=== PATIENT | male | born 1940 | race Caucasian/White ===

== ENCOUNTER 2016-11-28 12:37 | Outpatient (CLI) ==
[2016-11-28 13:34] VITALS: BMI 22.8
== END 2016-11-28 12:38 ==
LOC: AMBL 12:37
PROVIDERS: ATTEND Emergency Medicine
DX: R26.2 Difficulty in walking, not elsewhere classified (principal); R09.02 Hypoxemia

== ENCOUNTER 2016-11-28 12:49 | Inpatient (IN) ==
[2016-11-28] MEDS ORDERED: SODIUM CHLORIDE 1,000 ML IV STA (12:54)
--- NOTE | 2016-11-28 13:15 | ED.PDOC ---
General ED Provider: Dr. SHILO VANEGAS Stated Complaint: 76 yo w male rustcharlie ia patient too weak to get out of his recliner for five or six days found in chair by friend,unwilling to be treated until today, denies focal signs just global weakness especially unable to walk emaciated conversant soiled note right buttock lesions actively bleed after cleansing, hreg lungs raspy Time Seen by Physician: 13:00 Mode of Arrival: Ambulance Information Source: Patient Exam Limitations: Clinical condition, Other Nursing and Triage Documentation Reviewed and Agree: No Review of Systems - Review Of Systems Constitutional: Reports: Malaise, Weakness Eyes: Reports: No symptoms Ears, Nose, Mouth, Throat: Reports: No symptoms Respiratory: Reports: No symptoms Cardiac: Reports: No symptoms GI: Reports: No symptoms : Reports: No symptoms Musculoskeletal: Reports: Other Skin: Reports: Lesions Neurological: Reports: Weakness Endocrine: Reports: No symptoms Hematologic/Lymphatic: Reports: No symptoms All Other Systems: Other Past Medical History - Past Medical History Previously Healthy: Yes Endocrine: Reports: None Cardiovascular: Reports: None Respiratory: Reports: None Hematological: Reports: None Gastrointestinal: Reports: None Genitourinary: Reports: None Neuro/Psych: Reports: None Musculoskeletal: Reports: Back Pain ([id number]) Cancer: Reports: None - Surgical History General Surgical History: Reports: Appendectomy, Hernia Repair (ventral hernia repair) - Family History Family History: Reports: Unknown - Social History Hx Substance Use: No Physical Exam - Physical Exam Appearance: Ill-appearing, Thin, Cachectic Ill-appearing: Moderate Pain Distress: Mild Eyes: KIM, EOMI, Conjunctiva clear ENT: Ears normal, Nose normal, Oropharynx normal Neck: Supple Respiratory: Airway patent, Breath sounds equal, Breath sounds diminished, Respirations nonlabored, Rhonchi Cardiovascular: RRR, Pulses normal, No rub, No murmur GI/: Soft, No masses Musculoskeletal: ROM intact, No edema, No calf tenderness, Limited strength Skin: Warm, Dry Neurological: Sensation intact, Motor intact, Alert, Oriented Psychiatric: Affect appropriate Interpretation - Radiology Interpretation Radiology Interpretation By: Radiologist Radiology Results: Positive Exam Interpreted: CXR (mild bibasilar pneumonia) - EKG Interpretation Time of EKG #1: 13:55 Rate: Normal Rhythm: Sinus ST Segment: Other (prolonged qt; t flattening) Physician Notification - Case Discussed Physician Notified: [email or web address] need to [phone] colette Time of Notification: 14:20 (dry transfer worker fax record [phone]) Critical Care Note - Critical Care Note Total Time (mins): 20 Course - Course Hematology/Chemistry: 11/28/16 13:20 11/28/16 18:00 Orders, Labs, Meds: Lab Review 11/28/16 11/28/16 12:54 13:20 WBC 8.71 RBC 3.77 L Hgb 15.0 Hct 42.3 MCV 112.2 H MCH 39.8 H MCHC 35.5 H RDW Coeff of Heather 13.6 Plt Count 127 L Immature Gran % (Auto) 1.3 Neut % (Auto) 68.4 Lymph % (Auto) 23.5 [place] % (Auto) 5.9 Eos % (Auto) 0.6 Baso % (Auto) 0.3 Immature Gran # (Auto) 0.1 Neut # 6.0 Lymph # 2.1 [place] # 0.5 Eos # 0.1 Baso # 0.0 Macrocytosis 2+ D-Dimer 1.47 Puncture Site R brachial O2 Saturation 94.0 L ABG pH 7.536 H* ABG pCO2 37.9 ABG pO2 63.0 L ABG HCO3 32.2 H ABG Total CO2 33 H ABG Base Excess 10 H Jose Test + FiO2 % 21.0 Sodium 138 Potassium 2.7 L* Chloride 84 L Carbon Dioxide 34 H Anion Gap 22.7 BUN 13 Creatinine 0.69 Estimated GFR (MDRD) 111.00 BUN/Creatinine Ratio 18.84 Glucose 78 L Calcium 8.6 Magnesium 2.1 Total Bilirubin 2.36 H AST 76 H ALT 39 Alkaline Phosphatase 124 H Total Creatine Kinase 35 Troponin I < 0.0100 B-Natriuretic Peptide 68 Total Protein 7.2 Albumin 2.4 L Globulin 4.8 Albumin/Globulin Ratio 0.50 Procalcitonin 0.23 Orders Category Date Time Status ADMIT PATIENT INPATIENT .TO [facility] (MONITORED BED) ADMISSION 11/28/16 16: 19 Active ABG DRAW REQUEST Stat CARDIO 11/28/16 12:55 Completed EKG-(ED ONLY) Stat CARDIO 11/28/16 12:54 Completed EKG-(IP & OP ONLY) DAILY CARDIO 11/29/16 06:00 Ordered EKG-(IP & OP ONLY) DAILY CARDIO 11/30/16 06:00 Ordered EKG-(IP & OP ONLY) DAILY CARDIO 12/01/16 06:00 Ordered OXYGEN Routine CARDIO 11/28/16 16:22 Active ACTIVITY .Early Mobilization for VTE Prevention CARE 11/28/16 16:19 Completed CASE MANAGEMENT CONSULT ONCE CARE 11/28/16 16:20 Active GIVE HS SNACK 2100 CARE 11/28/16 16:22 Active INTAKE & OUTPUT Q8HR CARE 11/28/16 16:09 Inactive INTAKE & OUTPUT Q8HR CARE 11/28/16 16:19 Active TELEMETRY MONITORING TELE CARE 11/28/16 16:20 Active VITAL SIGNS Q4HR CARE 11/28/16 16:19 Completed CARDIAC DIET DIETARY 11/28/16 Dinner Ordered HS SNACK DIETARY 11/28/16 Dinner Ordered ED APPLY O2 .ONCE EMERGENCY 11/28/16 12:54 Active ED ENCODING MACHINE OPERATOR APPLIED .ONCE EMERGENCY 11/28/16 12:54 Active ED IV/MEDIPORT/POWERPORT .ONCE EMERGENCY 11/28/16 12:54 Active ABG Stat LAB 11/28/16 12:54 Completed B-TYPE NATRIURETIC PEPTIDE Stat LAB 11/28/16 13:20 Completed BLOOD CULTURE Stat LAB 11/28/16 13:20 Received CBC W/ AUTO DIFF DAILY@0600 LAB 11/29/16 06:00 Ordered CBC W/ AUTO DIFF DAILY@0600 LAB 11/30/16 06:00 Ordered CBC W/ AUTO DIFF DAILY@0600 LAB 12/01/16 06:00 Ordered CBC W/ AUTO DIFF DAILY@0600 LAB 12/02/16 06:00 Ordered CBC W/ AUTO DIFF DAILY@0600 LAB 12/03/16 06:00 Ordered CBC W/ AUTO DIFF DAILY@0600 LAB 12/04/16 06:00 Ordered CBC W/ AUTO DIFF DAILY@0600 LAB 12/05/16 06:00 Ordered CBC W/ AUTO DIFF DAILY@0600 LAB 12/06/16 06:00 Ordered CBC W/ AUTO DIFF DAILY@0600 LAB 12/07/16 06:00 Ordered CBC W/ AUTO DIFF DAILY@0600 LAB 12/08/16 06:00 Ordered CBC W/ AUTO DIFF DAILY@0600 LAB 12/09/16 06:00 Ordered CBC W/ AUTO DIFF DAILY@0600 LAB 12/10/16 06:00 Ordered CBC W/ AUTO DIFF DAILY@0600 LAB 12/11/16 06:00 Ordered CBC W/ AUTO DIFF DAILY@0600 LAB 12/12/16 06:00 Ordered CBC W/ AUTO DIFF DAILY@0600 LAB 12/13/16 06:00 Ordered CBC W/ AUTO DIFF DAILY@0600 LAB 12/14/16 06:00 Ordered CBC W/ AUTO DIFF DAILY@0600 LAB 12/15/16 06:00 Ordered CBC W/ AUTO DIFF DAILY@0600 LAB 12/16/16 06:00 Ordered CBC W/ AUTO DIFF DAILY@0600 LAB 12/17/16 06:00 Ordered CBC W/ AUTO DIFF DAILY@0600 LAB 12/18/16 06:00 Ordered CBC W/ AUTO DIFF Stat LAB 11/28/16 13:20 Completed COMPREHENSIVE METABOLIC PANEL DAILY@0600 LAB 11/29/16 06:00 Ordered COMPREHENSIVE METABOLIC PANEL DAILY@0600 LAB 11/30/16 06:00 Ordered COMPREHENSIVE METABOLIC PANEL DAILY@0600 LAB 12/01/16 06:00 Ordered COMPREHENSIVE METABOLIC PANEL DAILY@0600 LAB 12/02/16 06:00 Ordered COMPREHENSIVE METABOLIC PANEL DAILY@0600 LAB 12/03/16 06:00 Ordered COMPREHENSIVE METABOLIC PANEL DAILY@0600 LAB 12/04/16 06:00 Ordered COMPREHENSIVE METABOLIC PANEL DAILY@0600 LAB 12/05/16 06:00 Ordered COMPREHENSIVE METABOLIC PANEL DAILY@0600 LAB 12/06/16 06:00 Ordered COMPREHENSIVE METABOLIC PANEL DAILY@0600 LAB 12/07/16 06:00 Ordered COMPREHENSIVE METABOLIC PANEL DAILY@0600 LAB 12/08/16 06:00 Ordered COMPREHENSIVE METABOLIC PANEL DAILY@0600 LAB 12/09/16 06:00 Ordered COMPREHENSIVE METABOLIC PANEL DAILY@0600 LAB 12/10/16 06:00 Ordered COMPREHENSIVE METABOLIC PANEL DAILY@0600 LAB 12/11/16 06:00 Ordered COMPREHENSIVE METABOLIC PANEL DAILY@0600 LAB 12/12/16 06:00 Ordered COMPREHENSIVE METABOLIC PANEL DAILY@0600 LAB 12/13/16 06:00 Ordered COMPREHENSIVE METABOLIC PANEL DAILY@0600 LAB 12/14/16 06:00 Ordered COMPREHENSIVE METABOLIC PANEL DAILY@0600 LAB 12/15/16 06:00 Ordered COMPREHENSIVE METABOLIC PANEL DAILY@0600 LAB 12/16/16 06:00 Ordered COMPREHENSIVE METABOLIC PANEL DAILY@0600 LAB 12/17/16 06:00 Ordered COMPREHENSIVE METABOLIC PANEL DAILY@0600 LAB 12/18/16 06:00 Ordered COMPREHENSIVE METABOLIC PANEL Stat LAB 11/28/16 13:20 Completed CREATINE KINASE Q8H LAB 11/28/16 22:30 Ordered CREATINE KINASE Q8H LAB 11/29/16 06:30 Ordered CREATINE KINASE Stat LAB 11/28/16 13:20 Completed D-DIMER Stat LAB 11/28/16 13:20 Completed HEPATITIS PANEL, ACUTE Routine LAB 11/28/16 13:20 Received MAGNESIUM Stat LAB 11/28/16 13:20 Completed MAGNESIUM Timed LAB 11/28/16 18:00 Completed POTASSIUM Timed LAB 11/28/16 18:00 Completed PROCALCITONIN Stat LAB 11/28/16 13:20 Completed RBC MORPHOLOGY Stat LAB 11/28/16 13:20 Completed TROPONIN I Q8H LAB 11/28/16 22:30 Ordered TROPONIN I Q8H LAB 11/29/16 06:30 Ordered TROPONIN I Stat LAB 11/28/16 13:20 Completed 0.9 % Sodium Chloride [Saline Flush] MEDS 11/28/16 12:54 Active 1 syr IVF PRN PRN Acetaminophen [Tylenol] MEDS 11/28/16 16:23 Active 650 mg PO Q4H PRN Ceftriaxone Sodium [Rocephin] 1 gm MEDS 11/29/16 09:00 Active 0.9 % Sodium Chloride [Sodium Chloride] 100 ml IV DAILY Ceftriaxone Sodium [Rocephin] 1 gm MEDS 11/28/16 16:03 Discontinued 0.9 % Sodium Chloride [Sodium Chloride] 100 ml IV ONCE Potassium Chloride [K-Dur] MEDS 11/28/16 14:07 Discontinued 40 meq PO ONCE STA Potassium Chloride [Potassium Chl 10% Oral Erika] MEDS 11/28/16 14:47 Discontinued 40 meq PO ONCE STA Potassium Chloride in 0.9%NaCl [Sodium Chloride 0.9%- MEDS 11/28/16 14:07 Discontinued KCl 40Meq] 1,000 ml IV 250 mls/hr Sodium Chloride 0.9% [Sodium Chloride] 1,000 ml MEDS 11/28/16 12:54 Active IV 100 mls/hr Sodium Chloride 0.9% [Sodium Chloride] 500 ml MEDS 11/28/16 13:23 Discontinued IV BOLUS RESUSCITATION STATUS Routine OTHERS 11/28/16 16:06 Ordered CHEST, 1V AP ONLY Stat RADS 11/28/16 12:54 Completed Medications Generic Name Dose Route Start Last Admin Trade Name Chris PRN Reason Stop Dose Admin Acetaminophen 650 mg 11/28/16 16:23 Tylenol PO Q4H PRN Mild Pain Albuterol/Ipratropium 1 vial 11/28/16 18:00 11/28/16 18:16 Duoneb NEB 1 vial RTQ6H SHIVA Administration Calamine/Phenol 1 applic 11/28/16 17:33 11/28/16 17:51 Calmoseptine Ointment TP 1 applic PRN PRN Administration excoriation Sodium Chloride 1,000 mls @ 100 mls/hr 11/28/16 12:54 11/28/16 14:30 Sodium Chloride IV 11/28/16 22:53 100 mls/hr .Q10H STA Administration Ceftriaxone Sodium 1 gm/ 100 mls @ 75 mls/hr 11/29/16 09:00 Sodium Chloride IV DAILY SHIVA Vancomycin HCl 1 gm/ Sodium 250 mls @ 125 mls/hr 11/28/16 17:00 11/28/16 17: 59 Chloride IV 125 mls/hr Q12HR SHIVA Administration Nystatin 1 applic 11/28/16 21:00 11/28/16 17:51 Nystatin Cream TP 1 applic TID SHIVA Administration Nystatin 1 applic 11/28/16 21:00 11/28/16 17:51 Nystop Powder TP 1 applic TID SHIVA Administration Sodium Chloride 1 syr 11/28/16 12:54 Saline Flush IVF PRN PRN To flush IV Discontinued Medications Generic Name Dose Route Start Last Admin Trade Name Freyanely PRN Reason Stop Dose Admin Sodium Chloride 500 mls @ 1,000 mls/hr 11/28/16 13:23 11/28/16 14:04 Sodium Chloride IV 11/28/16 13:52 1,000 mls/hr BOLUS STA Administration Potassium Chloride/Sodium Chloride 1,000 mls @ 250 mls/hr 11/28/16 14:07 15:18 Sodium Chloride 0.9%-Kcl 40meq IV 11/28/16 18:06 250 mls/hr .Q4H STA Administration Ceftriaxone Sodium 1 gm/ 100 mls @ 100 mls/hr 11/28/16 16:03 11/28/16 16:57 Sodium Chloride IV 11/28/16 17:02 100 mls/hr ONCE STA Administration Potassium Chloride 40 meq 11/28/16 14:07 11/28/16 14:50 K-Dur PO 11/28/16 14:08 Not Given ONCE STA Potassium Chloride 40 meq 11/28/16 14:47 11/28/16 14:57 Potassium Chl 10% Oral Erika PO 11/28/16 14:48 40 meq ONCE STA Administration Vital Signs: Temp Pulse Resp BP Pulse Ox 11/28/16 12:49 97.1 F L 109 H 24 103/63 88 L Departure - Departure Time of Disposition: 14:26 Disposition: ADMITTED INPATIENT Discharge Problem: Muscle weakness, Hypokalemia Condition: Fair Pt referred to PMD for follow-up: No (hospitalist) Allergies/Adverse Reactions: Allergies No Known Allergies Allergy (Unverified 04/03/13 10:01) Home Medications: Ambulatory Orders Aspirin [Aspirin Chewable] 81 mg PO DAILY 04/03/13 Multivitamin [Multi Vitamin Daily] 1 tab PO DAILY 04/03/13
[2016-11-28 13:17] LABS: ABG BASE EXCESS 10 (-2.0-2.0); ABG HCO3 32.2 (22.0-26.0); ABG PCO2 37.9 mmHg (35-45); ABG PH 7.536 (7.35-7.45); ABG TCO2 33 (22.0-28.0)
[2016-11-28] MEDS ORDERED: SODIUM CHLORIDE 500 ML IV STA (13:23)
[2016-11-28 13:34] VITALS: BMI 22.8
--- NOTE | 2016-11-28 13:43 | DI ---
EXAM: CHEST FRONTAL VIEW HISTORY: Chest pain. COMPARISON: None FINDINGS: Heart size is within normal limits. Patchy discoid density in the right base. Lungs oth erwise clear. Normal vascularity. There may be mild aortic atherosclerosis. No pneumothorax or ac [place] bony deformity. IMPRESSION: Bibasilar density could represent mild pneumonia. If symptoms persist, consider follow up with full inspiration, standing two-view chest radiography using PA and lateral technique.
[2016-11-28 13:54] LABS: BASOPHILS % (AUTO) 0.3 % (0.0-3.0); EOSINOPHILS # (AUTO) 0.1 K/ul (0.0-0.7); EOSINOPHILS % (AUTO) 0.6 % (0.0-7.0); HEMATOCRIT 42.3 % (42.0-52.0); IMMATURE GRANULOCYTE % (AUTO) 1.3 % (0.0-5.0); LYMPHOCYTES # (AUTO) 2.1 K/uL (0.60-3.4); LYMPHOCYTES % (AUTO) 23.5 (10.0-50.0); MEAN CORPUSCULAR HEMOGLOBIN 39.8 pg (27.0-31.0); MEAN CORPUSCULAR HGB CONC 35.5 (31.8-35.4); MEAN CORPUSCULAR VOLUME 112.2 fl (80.0-94.0); MONOCYTES # (AUTO) 0.5 K/uL (0.4-2.0); MONOCYTES % (AUTO) 5.9 (0-10); NEUTROPHILS % (AUTO) 68.4; PLATELET COUNT 127 10^3/uL (140-440); RED BLOOD COUNT 3.77 10^6/ul (4.70-6.10); WHITE BLOOD COUNT 8.71 K/ul (4.2-10.2)
[2016-11-28 14:05] LABS: ALANINE AMINOTRANSFERASE 39 U/L (12-78); ALBUMIN 2.4 g/dL (3.4-5.0); ALKALINE PHOSPHATASE 124 U/L (56-119); ANION GAP 22.7; ASPARTATE AMINO TRANSFERASE 76 U/L (15-37); BILIRUBIN,TOTAL 2.36 mg/dL (0.00-1.20); BLOOD UREA NITROGEN 13 mg/dL (7-18); BUN/CREATININE RATIO 18.84; CALCIUM 8.6 mg/dL (8.2-10.2); CARBON DIOXIDE 34 mmol/L (23-31); CHLORIDE 84 mmol/L (98-107); CREATINE KINASE 35 U/L; CREATININE 0.69 mg/dL (0.60-1.10); GLUCOSE 78 mg/dL (82-115); SODIUM 138 mmol/L (136-145); TOTAL PROTEIN 7.2 g/dL (5.8-8.1)
[2016-11-28 14:07] LABS: POTASSIUM 2.7 mmol/L (3.5-5.1)
[2016-11-28] MEDS ORDERED: K-DUR PO STA (14:07)
[2016-11-28] MEDS ORDERED: SODIUM CHLORIDE 0.9%-KCL 40MEQ 1,000 ML IV STA (14:07)
[2016-11-28 14:09] LABS: ANISOCYTOSIS NOT PRESENT (NOT PRESENT)
[2016-11-28] MEDS ORDERED: POTASSIUM CHL 10% ORAL SOL PO STA (14:47)
[2016-11-28] MEDS ORDERED: ROCEPHIN 1 GM in SODIUM CHLORIDE 100 ML IV STA (16:03)
[2016-11-28] MEDS ORDERED: TYLENOL PO PRN (16:23)
[2016-11-28] MEDS ORDERED: VANCOMYCIN 1 GM in SODIUM CHLORIDE 250 ML IV SCH (17:00)
[2016-11-28] MEDS ORDERED: ROCEPHIN ONE (17:01)
[2016-11-28] MEDS: VANCOMYCIN 1 GM in SODIUM CHLORIDE 250 ML IV SCH ×2 (17:46→17:59)
[2016-11-28] MEDS: NYSTATIN CREAM TP SCH ×2 (17:51→20:44)
[2016-11-28] MEDS: NYSTOP POWDER TP SCH ×2 (17:51→20:44)
[2016-11-28] MEDS: CALMOSEPTINE OINTMENT TP PRN ×2 (17:51→20:44)
[2016-11-28 18:12] LABS: MAGNESIUM 2.1 mg/dL (1.7-2.2); POTASSIUM 4.7 mmol/L (3.5-5.1)
[2016-11-28] MEDS: DUONEB NEB SCH ×2 (18:16→23:00)
[2016-11-28] MEDS ORDERED: ALBUTEROL 0.083% NEB NEB SCH (20:00)
[2016-11-28] MEDS ORDERED: SODIUM CHLORIDE 0.9% IV SCH ×2 (22:00→22:10)
[2016-11-28] MEDS ORDERED: KCL 40 MEQ IV SCH ×2 (22:00→22:10)
[2016-11-28] MEDS: SODIUM CHLORIDE 0.9%-KCL 40MEQ 1,000 ML IV SCH (22:32)
[2016-11-28 23:30] LABS: TROPONIN I 0.022 ng/ml (0.0000-0.4000)
[2016-11-29] MEDS: VANCOMYCIN 1 GM in SODIUM CHLORIDE 250 ML IV SCH ×3 (00:52→21:01)
[2016-11-29] MEDS: DUONEB NEB SCH ×4 (05:19→23:15)
[2016-11-29 07:47] LABS: BASOPHILS % (AUTO) 0.3 % (0.0-3.0); EOSINOPHILS % (AUTO) 0.5 % (0.0-7.0); HEMOGLOBIN 12.6 g/dl (14.0-18.0); IMMATURE GRANULOCYTE % (AUTO) 1.4 % (0.0-5.0); LYMPHOCYTES # (AUTO) 1.2 K/uL (0.60-3.4); LYMPHOCYTES % (AUTO) 16.8 (10.0-50.0); MEAN CORPUSCULAR HEMOGLOBIN 39.6 pg (27.0-31.0); MEAN CORPUSCULAR HGB CONC 34.7 (31.8-35.4); MEAN CORPUSCULAR VOLUME 114.2 fl (80.0-94.0); MONOCYTES # (AUTO) 0.4 K/uL (0.4-2.0); MONOCYTES % (AUTO) 5.5 (0-10); NEUTROPHILS # (AUTO) 5.5 K/ul (2.0-6.9); NEUTROPHILS % (AUTO) 75.5; PLATELET COUNT 105 10^3/uL (140-440); RED BLOOD COUNT 3.18 10^6/ul (4.70-6.10); WHITE BLOOD COUNT 7.33 K/ul (4.2-10.2)
[2016-11-29 07:49] LABS: HEMATOCRIT 36.3 % (42.0-52.0)
[2016-11-29 08:01] LABS: ALBUMIN/GLOBULIN RATIO 0.56; ANION GAP 14.9; BILIRUBIN,TOTAL 1.42 mg/dL (0.00-1.20); BUN/CREATININE RATIO 24.56; CALCIUM 7.6 mg/dL (8.2-10.2); CREATININE 0.57 mg/dL (0.60-1.10); POTASSIUM 3.9 mmol/L (3.5-5.1); TOTAL PROTEIN 5.6 g/dL (5.8-8.1); TROPONIN I 0.022 ng/ml (0.0000-0.4000)
[2016-11-29] MEDS: ROCEPHIN 1 GM in SODIUM CHLORIDE 100 ML IV SCH (08:27)
[2016-11-29] MEDS: NYSTOP POWDER TP SCH ×4 (08:27→21:01)
[2016-11-29] MEDS: NYSTATIN CREAM TP SCH ×4 (08:28→21:01)
[2016-11-29] MEDS ORDERED: DEMEROL 25 MG/ML SYRINGE ONE (09:41)
[2016-11-29] MEDS: MICATIN TP SCH ×3 (09:46→21:00)
[2016-11-29 10:54] LABS: BILIRUBIN,URINE 3+ (NEGATIVE); KETONES,URINE 2+ (NEGATIVE); LEUKOCYTE ESTERASE ,URINE Negative (NEGATIVE); NITRITE,URINE Negative (NEGATIVE); PH,URINE 5.5 (5-9); PROTEIN,URINE 1+ (NEGATIVE); URINE, BLOOD Negative (NEGATIVE)
[2016-11-29 10:58] LABS: ADD URINE MICROSCOPIC YES
[2016-11-29 10:59] LABS: BACTERIA,URINE 1+ (NOT PRESENT); GRANULAR CASTS,URINE 0-2 (NOT PRESENT)
[2016-11-29] MEDS: CALMOSEPTINE OINTMENT TP PRN ×2 (14:51→17:12)
[2016-11-29] MEDS: DEMEROL 25 MG/ML SYRINGE IVP PRN (17:12)
[2016-11-30 04:49] LABS: BASOPHILS % (AUTO) 0.3 % (0.0-3.0); EOSINOPHILS # (AUTO) 0.1 K/ul (0.0-0.7); EOSINOPHILS % (AUTO) 1.2 % (0.0-7.0); HEMATOCRIT 35.7 % (42.0-52.0); HEMOGLOBIN 12.3 g/dl (14.0-18.0); LYMPHOCYTES # (AUTO) 0.9 K/uL (0.60-3.4); LYMPHOCYTES % (AUTO) 14.6 (10.0-50.0); MEAN CORPUSCULAR HEMOGLOBIN 39.8 pg (27.0-31.0); MEAN CORPUSCULAR HGB CONC 34.5 (31.8-35.4); MEAN CORPUSCULAR VOLUME 115.5 fl (80.0-94.0); MONOCYTES # (AUTO) 0.2 K/uL (0.4-2.0); NEUTROPHILS # (AUTO) 4.7 K/ul (2.0-6.9); NEUTROPHILS % (AUTO) 78.9; PLATELET COUNT 75 10^3/uL (140-440); RED BLOOD COUNT 3.09 10^6/ul (4.70-6.10); WHITE BLOOD COUNT 6.01 K/ul (4.2-10.2)
[2016-11-30] MEDS: DUONEB NEB SCH ×4 (05:00→23:02)
[2016-11-30 05:17] LABS: ALBUMIN 1.8 g/dL (3.4-5.0); ALBUMIN/GLOBULIN RATIO 0.53; ANION GAP 10.1; BILIRUBIN,TOTAL 1.16 mg/dL (0.00-1.20); BUN/CREATININE RATIO 14.28; CALCIUM 7.7 mg/dL (8.2-10.2); CREATININE 0.49 mg/dL (0.60-1.10); POTASSIUM 4.1 mmol/L (3.5-5.1); TOTAL PROTEIN 5.2 g/dL (5.8-8.1)
[2016-11-30] MEDS: SODIUM CHLORIDE 0.9%-KCL 40MEQ 1,000 ML IV SCH (06:28)
[2016-11-30] MEDS: LOVENOX SUBCUT SCH (09:05)
[2016-11-30] MEDS: MICATIN TP SCH ×2 (09:06→20:23)
[2016-11-30] MEDS: NYSTATIN CREAM TP SCH ×2 (09:06→15:26)
[2016-11-30] MEDS: ROCEPHIN 1 GM in SODIUM CHLORIDE 100 ML IV SCH (09:07)
[2016-11-30] MEDS: NYSTOP POWDER TP SCH ×3 (09:07→20:23)
[2016-11-30] MEDS: CALMOSEPTINE OINTMENT TP PRN ×2 (09:35→15:24)
[2016-11-30] MEDS: DEMEROL 25 MG/ML SYRINGE IVP PRN (09:37)
[2016-11-30] MEDS: VANCOMYCIN 1 GM in SODIUM CHLORIDE 250 ML IV SCH ×2 (10:40→20:23)
[2016-11-30] MEDS ORDERED: SANTYL TP SCH (16:30)
[2016-12-01] MEDS: DUONEB NEB SCH ×4 (04:35→23:07)
[2016-12-01 04:50] LABS: BASOPHILS % (AUTO) 0.2 % (0.0-3.0); EOSINOPHILS # (AUTO) 0.1 K/ul (0.0-0.7); EOSINOPHILS % (AUTO) 2.2 % (0.0-7.0); HEMATOCRIT 30.8 % (42.0-52.0); HEMOGLOBIN 10.8 g/dl (14.0-18.0); IMMATURE GRANULOCYTE % (AUTO) 1.1 % (0.0-5.0); LYMPHOCYTES # (AUTO) 0.8 K/uL (0.60-3.4); LYMPHOCYTES % (AUTO) 17.7 (10.0-50.0); MEAN CORPUSCULAR HGB CONC 35.1 (31.8-35.4); MEAN CORPUSCULAR VOLUME 114.1 fl (80.0-94.0); MONOCYTES # (AUTO) 0.3 K/uL (0.4-2.0); MONOCYTES % (AUTO) 5.8 (0-10); NEUTROPHILS # (AUTO) 3.3 K/ul (2.0-6.9); PLATELET COUNT 78 10^3/uL (140-440); WHITE BLOOD COUNT 4.46 K/ul (4.2-10.2)
[2016-12-01 05:10] LABS: ALBUMIN 1.7 g/dL (3.4-5.0); ALBUMIN/GLOBULIN RATIO 0.59; ANION GAP 9.9; BILIRUBIN,TOTAL 0.86 mg/dL (0.00-1.20); BUN/CREATININE RATIO 10.86; CALCIUM 7.4 mg/dL (8.2-10.2); CREATININE 0.46 mg/dL (0.60-1.10); POTASSIUM 3.9 mmol/L (3.5-5.1); TOTAL PROTEIN 4.6 g/dL (5.8-8.1)
[2016-12-01] MEDS: ROCEPHIN 1 GM in SODIUM CHLORIDE 100 ML IV SCH (09:43)
[2016-12-01] MEDS: LOVENOX SUBCUT SCH (09:45)
[2016-12-01] MEDS: NYSTOP POWDER TP SCH ×3 (09:46→22:26)
[2016-12-01] MEDS: MICATIN TP SCH ×2 (09:47→22:25)
[2016-12-01] MEDS: SODIUM CHLORIDE 0.9%-KCL 40MEQ 1,000 ML IV SCH (09:47)
[2016-12-01] MEDS: CALMOSEPTINE OINTMENT TP PRN (10:31)
[2016-12-01] MEDS: DEMEROL 25 MG/ML SYRINGE IVP PRN (10:54)
--- NOTE | 2016-12-01 11:18 | PCM.PROG ---
Attending Provider: ATTENDING PROVIDER: Dr. HUA STREETER DATE OF SERVICE: 12/01/16 SUBJECTIVE: This 76 year old WHITE/ M was hospitalized 11/28/16. The patient is admitted with community acquired pneumonia feeling better. no cough. Hypokalemia has resolved. No fever, no chills. REVIEW OF SYSTEMS: CONSTITUTIONAL: No fever, no chills. ENDOCRINE: No weight loss or weight gain. HEENT: No sinus drainage, no sore throat. CVS: No angina symptoms. No CHF symptoms. No palpitations. No atypical chest pain for CAD. No shortness of breath. RESPIRATORY: No cough, no hemoptysis. GI: No melena. No abdominal pain. No nausea, no vomiting. : No hematuria. No polyuria. SKIN: Multiple excoriations on buttocks. MUSCULOSKELETAL: No pain. INTERNET E[employer]ER[employer] SPECIALIST: No blackout, no dizziness. No headache. No double vision. PSYCHIATRIC: Not anxious; no depression. No suicidal thoughts. No homicidal thoughts. PHYSICAL EXAMINATION: GENERAL: Lying in bed in no distress. VITAL SIGNS: Temperature 98.1 F, Pulse 82, Respiratory Rate 20, BP 103/62, Pulse Ox 97% HEENT: Normocephalic, atraumatic. Mucosa is dry, pallor positive. NECK: No JVP, no carotid bruit. No lymphadenopathy. CARDIAC: S1, S2, no S3. No murmur, gallop or regurgitation. LUNGS: Decreased entry with basilar crackles. ABDOMEN: Soft, non-tender. Bowel sounds active. No rigidity, guarding or CVA tenderness. EXTREMITIES: No clubbing, cyanosis or edema. NEUROLOGIC: Awake, alert and oriented x3. LYMPHATIC: No palpable lymph nodes SKIN: Not dry. Intact. MUSCULOSKELETAL: No joint swelling. LAB REVIEW: 12/01/16 04:49 12/01/16 04:49 12/01/16 04:49: WBC 4.46, RBC 2.70 L, Hgb 10.8 L, Hct 30.8 L, MCV 114.1 H, MCH 40.0 H, MCHC 35.1, RDW Coeff of Heather 13.8, Plt Count 78 L, Immature Gran % (Auto ) 1.1, Neut % (Auto) 73.0, Lymph % (Auto) 17.7, [place] % (Auto) 5.8, Eos % (Auto) 2.2, Baso % (Auto) 0.2, Immature Gran # (Auto) 0.1, Neut # 3.3, Lymph # 0.8, [place] # 0.3 L, Eos # 0.1, Baso # 0.0, Sodium 137, Potassium 3.9, Chloride 105, Carbon Dioxide 26, Anion Gap 9.9, BUN 5 L, Creatinine 0.46 L, Estimated GFR ( MDRD) 178.00, BUN/Creatinine Ratio 10.86, Glucose 95, Calcium 7.4 L, Total Bilirubin 0.86, AST 42 H, ALT 27, Alkaline Phosphatase 75, Total Protein 4.6 L, Albumin 1.7 L, Globulin 2.9, Albumin/Globulin Ratio 0.59 11/30/16 08:35: Vancomycin Trough 31.25 H* ASSESSMENT: 1. Community acquired pneumonia 2. Status post severe hypoxemia 3. Hypertension 4. Dyslipidemia 5. Multiple open areas excoriated on buttocks PLAN: 1. Dietary consult 2. Will discuss group home evaluation Plan and coordination of the patient's care discussed in the presence of Gun Club Manager and nurse. CONDITION: Stable SCRIBED BY: TYRELL GARZON, Athletic Turf Worker scribed while in presence of service performed by Dr. HUA STREETER on 12/01/16 ([id number])
--- NOTE | 2016-12-01 12:50 | HP ---
DATE OF SERVICE: 11/28/16 CHIEF COMPLAINT: Weakness. HISTORY OF PRESENT ILLNESS: This is a 76-year-old male who lives by himself. A friend went to check on him and he was sitting in the recliner. The friend talked to him and he was complaining that he had been in the recliner for the last 6 days, not able to move or walk. He says he is weak in the legs, had nausea and vomiting before and cough and congestion before. The patient was given a bath in the emergency room, found to have a lot of decubs on the back and dried feces, all were cleared. With evaluation, the patient was found to have ABGs pH 7.536, pc02 37.9 , p02 63. Sodium 138, potassium 2.8, total bilirubin 2.36, AST 76. Chest x-ray showed pneumonia bilateral. At that time, the patient is admitted to the hospital with bilateral lower lobe community acquired pneumonia, decubitus ulcers and severe hypokalemia. REVIEW OF SYSTEMS: CONSTITUTIONAL: Weakness, tiredness. No fever, no chills. HEENT: Normal. ENDOCRINE: No weight gain; no weight loss. CVS: No chest pain. No PND, no orthopnea. No shortness of breath. RESPIRATORY: Cough. No hemoptysis. GI: No nausea, no vomiting. No abdominal pain. No melena. Diarrhea. : No hematuria. No polyuria. MUSCULOSKELETAL: No joint swelling. PSYCHIATRIC: Not anxious. No depression. No suicidal thoughts. No homicidal thoughts. SKIN: Intact, no open lesions. PAST SURGICAL HISTORY: Appendectomy Hernia repair PAST MEDICAL HISTORY: Nicotine use Hypertension Dyslipidemia PERSONAL HISTORY: Smoker, every day. No history of substance use. FAMILY HISTORY: Not known. MEDICATIONS: (HOME) Multivitamin Aspirin ALLERGIES: NKDA PHYSICAL EXAMINATION: V/S: BP 103/63, respiratory rate 24, heart rate 109, temperature 97.1. Saturation 88. GENERAL APPEARANCE: Ill appearing male lying in bed in no distress. He responds to verbal command but only if you are speaking in a loud tone. Weakness in the lower extremities noted. HEENT: Atraumatic, normocephalic. No scleral icterus. Mucosa dry. NECK: Supple. No JVD, no bruit. No lymphadenopathy. No thyromegaly. HEART: S1, S2 normal. No murmur. No cyanosis or clubbing. No ascites. LUNGS: Decreased entry with basilar crackles. No rales or rhonchi. ABDOMEN: Soft, nontender. Bowel sounds are active. No CVA tenderness. No rigidity or guarding. EXTREMITIES: No cyanosis, clubbing or pedal edema. Multiple areas of excoriations and open areas bilateral buttocks area. MUSCULOSKELETAL: Normal joints, no swelling. NEUROLOGIC: The patient is awake, alert, oriented times three. SKIN: As above. LYMPHATIC: No lymph nodes palpable. LABS: Sodium 138, potassium 2.7, chloride 84, bicarb 24, BUN 13, creatinine 0.69, white count 8.71, hemoglobin 15.0, hematocrit 42.3, platelet count 127. ASSESSMENT: 1. BILATERAL COMMUNITY ACQUIRED PNEUMONIA 2. DIFFUSE DECUBITUS ULCERS, GLUTEAL AREA 3. FAILURE TO THRIVE AT HOME 4. SEVERE HYPOKALEMIA 5. DEHYDRATION PLAN: 1. Admit the patient to SCU 2. Rocephin 1 gm daily 3. Replace potassium 4. IV fluids 5. Duonebs 6. Will start her on Vancomycin and Duonebs 7. Daily I & O's 8. I will follow with the patient in daily rounds TIME SPENT: More than 65 minutes today. ZAINAB
[2016-12-01] MEDS ORDERED: INFUVITE ADULT IV SCH (15:58)
[2016-12-01] MEDS ORDERED: [UNRECOGNIZED DRUG - OTHER] IV SCH (15:58)
[2016-12-01] MEDS ORDERED: FOLIC ACID IV SCH (15:58)
[2016-12-01] MEDS ORDERED: THIAMINE IV SCH (15:58)
[2016-12-01] MEDS ORDERED: DEMEROL 25 MG/ML SYRINGE IVP PRN (16:05)
[2016-12-01] MEDS: THIAMINE IV SCH (16:40)
[2016-12-01] MEDS: INFUVITE ADULT IV SCH (16:40)
[2016-12-01] MEDS: [UNRECOGNIZED DRUG - OTHER] IV SCH (16:40)
[2016-12-01] MEDS: FOLIC ACID IV SCH (16:40)
[2016-12-01] MEDS: PROTONIX PO SCH (16:40)
[2016-12-01] MEDS: LIBRIUM PO SCH ×2 (16:40→22:26)
[2016-12-01] MEDS: VANCOMYCIN 1 GM in SODIUM CHLORIDE 250 ML IV SCH (22:26)
[2016-12-02] MEDS: DUONEB NEB SCH ×4 (04:38→23:18)
[2016-12-02 05:24] LABS: BASOPHILS % (AUTO) 0.3 % (0.0-3.0); EOSINOPHILS # (AUTO) 0.1 K/ul (0.0-0.7); EOSINOPHILS % (AUTO) 2.2 % (0.0-7.0); HEMATOCRIT 32.3 % (42.0-52.0); HEMOGLOBIN 11.3 g/dl (14.0-18.0); IMMATURE GRANULOCYTE % (AUTO) 0.9 % (0.0-5.0); LYMPHOCYTES # (AUTO) 1.2 K/uL (0.60-3.4); LYMPHOCYTES % (AUTO) 19.9 (10.0-50.0); MEAN CORPUSCULAR HEMOGLOBIN 40.1 pg (27.0-31.0); MEAN CORPUSCULAR VOLUME 114.5 fl (80.0-94.0); MONOCYTES # (AUTO) 0.3 K/uL (0.4-2.0); MONOCYTES % (AUTO) 5.2 (0-10); NEUTROPHILS # (AUTO) 4.1 K/ul (2.0-6.9); NEUTROPHILS % (AUTO) 71.5; PLATELET COUNT 83 10^3/uL (140-440); RED BLOOD COUNT 2.82 10^6/ul (4.70-6.10); WHITE BLOOD COUNT 5.79 K/ul (4.2-10.2)
[2016-12-02] MEDS: PROTONIX PO SCH (05:34)
[2016-12-02 05:47] LABS: ALBUMIN 1.8 g/dL (3.4-5.0); ALBUMIN/GLOBULIN RATIO 0.56; ANION GAP 9.1; BILIRUBIN,TOTAL 0.98 mg/dL (0.00-1.20); BUN/CREATININE RATIO 9.61; CALCIUM 7.7 mg/dL (8.2-10.2); CREATININE 0.52 mg/dL (0.60-1.10); POTASSIUM 4.1 mmol/L (3.5-5.1)
[2016-12-02] MEDS: THIAMINE IV SCH ×3 (05:53→20:39)
[2016-12-02] MEDS: FOLIC ACID IV SCH ×3 (05:53→20:39)
[2016-12-02] MEDS: INFUVITE ADULT IV SCH ×3 (05:53→20:39)
[2016-12-02] MEDS: [UNRECOGNIZED DRUG - OTHER] IV SCH ×3 (05:53→20:39)
[2016-12-02] MEDS: ZINC-220 PO SCH ×2 (10:00→21:20)
[2016-12-02] MEDS: NORCO 7.5-325 PO PRN ×2 (10:00→18:41)
[2016-12-02] MEDS: VITAMIN C PO SCH (10:00)
[2016-12-02] MEDS: BACTRIM DS 800/160 MG PO SCH ×2 (10:01→21:20)
[2016-12-02] MEDS: ELIQUIS PO SCH ×2 (10:01→21:19)
[2016-12-02] MEDS: MICATIN TP SCH ×2 (10:01→21:15)
[2016-12-02] MEDS: NYSTOP POWDER TP SCH ×3 (10:01→21:15)
[2016-12-02] MEDS: CALMOSEPTINE OINTMENT TP PRN (10:10)
[2016-12-02] MEDS: LIBRIUM PO SCH ×3 (10:20→21:21)
--- NOTE | 2016-12-02 10:20 | CT ---
EXAM: CT of the head without contrast History: Slurred speech and weakness. Technique: Multiplanar CT images through the head were obtained without the administration of IV co ntrast Findings: The visualized paranasal sinuses and mastoid air cells are clear in general. No acute ca lvarial abnormalities. There is cerumen within the bilateral external auditory canals. Intracranially there is prominence of the ventricular system probably due to central atrophy. No do minant mass or midline shift. No hydrocephalous. No acute intracranial hemorrhage or abnormal extr aaxial fluid collections. Mild periventricular and subcortical white matter hypodensities. Impression: 1. No acute intracranial hemorrhage. 2. Prominence of the ventricular system probably due to central atrophy although cannot exclude a c omponent of normal pressure hydrocephalus and recommend clinical correlation.
--- NOTE | 2016-12-02 10:37 | DI ---
EXAM: Two views of the left elbow. History: Left elbow wound. Findings / impression: No acute fracture or dislocation. Small olecranon enthesiophyte. Moderate soft tissue swelling posterior to the elbow with possible soft tissue air. No definitive radiograph ic evidence for osteomyelitis.
--- NOTE | 2016-12-02 11:14 | PN ---
DATE OF SERVICE: 11/29/16 SUBJECTIVE: The patient was admitted with pneumonia, severe hypokalemia and decubitus wounds. He was not able to take care of himself. As of now the patient is awake , alert and complains that he is still hurting in the back. REVIEW OF SYSTEMS: CONSTITUTIONAL: No fever, no chills. HEENT: Normal. ENDOCRINE: No weight gain, no weight loss. CVS: No angina symptoms. No CHF symptoms. No palpitations. No atypical chest pain for CAD. No shortness of breath. No PND, no orthopnea. RESPIRATORY: No cough, no hemoptysis. GI: No nausea, no vomiting. No abdominal pain. : No hematuria. No polyuria. MUSCULOSKELETAL:. No joint swelling. PSYCHIATRIC: Not anxious. No depression. No suicidal thoughts. No homicidal thoughts. SKIN: Intact. No rash. PHYSICAL EXAMINATION: V/S: Blood pressure 115/65, respiratory rate 18, heart rate 99 and temperature 97.5. HEENT: Normocephalic, atraumatic. Ears, eyes, nose and throat normal. Mucosa dry. NECK: Supple. No JVD, no carotid bruit. No lymphadenopathy. LUNGS: Bilateral entry is decreased with basilar crackles. No rales or rhonchi. HEART: S1, S2 normal. No S3. No murmur, gallop or regurgitation. ABDOMEN: Soft, nontender. Bowel sounds active. No rigidity. No rebound or guarding. No CVA tenderness. EXTREMITIES: No clubbing, cyanosis or pedal edema. Bilateral gluteal area has many open areas which are red and warm to touch. MUSCULOSKELETAL: No joint swelling. NEUROLOGIC: Awake, alert, oriented times three. No focal deficit. LYMPHATIC: No lymph nodes palpable. SKIN: Intact. LABS: Sodium 138, Potassium 3.9, chloride 95, bicarb 32, BUN 14, creatinine 0.57, WBC 7.33, hgb 12.6, hct 36.3, plt count 105. ASSESSMENT: 1. Community acquired pneumonia 2. Status post severe hypokalemia 3. Bilateral decubitus ulcers 4. Appendectomy 5. Hernia repair 6. COPD 7. Osteoarthritis 8. Depression PLAN: 1. Continue the Rocephin and Vancomycin 2. DUO NEBS 3. Lovenox for DVT prophylaxis 4. IV fluids Will follow the patient in daily rounds. TIME SPENT: More than 30 minutes MTDD
--- NOTE | 2016-12-02 13:54 | PN ---
DATE OF SERVICE: 11/30/16 SUBJECTIVE: The patient was admitted with the community acquired pneumonia, severe hypokalemia and gluteal excoriations. The patient is more awake and alert. Feeling better. Unable to walk. REVIEW OF SYSTEMS: CONSTITUTIONAL: No fever, no chills. HEENT: Normal. ENDOCRINE: No weight gain, no weight loss. CVS: No angina symptoms. No CHF symptoms. No palpitations. No atypical chest pain for CAD. No shortness of breath. No PND, no orthopnea. RESPIRATORY: Some cough and hemoptysis. GI: No nausea, no vomiting. No abdominal pain. : No hematuria. No polyuria. MUSCULOSKELETAL:. No joint swelling. PSYCHIATRIC: Not anxious. No depression. No suicidal thoughts. No homicidal thoughts. SKIN: Intact. No rash. PHYSICAL EXAMINATION: V/S: Blood pressure 124/82, respiratory rate 16, heart rate 105 and temperature 97.8. HEENT: Normocephalic, atraumatic. Ears, eyes, nose and throat normal. Mucosa dry. Pallor positive. No icterus. NECK: Supple. No JVD, no carotid bruit. No lymphadenopathy. LUNGS: Decreased and basilar crackles. No rales or rhonchi. HEART: S1, S2 normal. No S3. No murmur, gallop or regurgitation. ABDOMEN: Soft, nontender. Bowel sounds active. No rigidity. No rebound or guarding. No CVA tenderness. EXTREMITIES: No clubbing, cyanosis or pedal edema. Gluteal areas multiple excoriated areas are present. MUSCULOSKELETAL: No joint swelling. NEUROLOGIC: Awake, alert, oriented times three. No focal deficit. LYMPHATIC: No lymph nodes palpable. SKIN: Intact. LABS: WBC 6.01, hgb 12.3, hct 35.0, plt count 75, sodium 137, potassium 4.1, chloride 102, bicarb 27, BUN 7 and creatinine 0.49. ASSESSMENT: 1. Community acquired pneumonia 2. Status post severe hypokalemia, which has improved 3. Gluteal excoriation, multiple wounds open areas. 4. Osteoarthritis 5. Depression PLAN: 1. Continue the Rocephin and Vancomycin 2. DUO NEBS 3. Out of bed to chair activity as much as tolerated 4. Daily I&O's TIME SPENT: More than 30 minutes MTDD
--- NOTE | 2016-12-02 14:00 | PCM.PROG ---
Attending Provider: ATTENDING PROVIDER: Dr. HUA STREETER DATE OF SERVICE: 12/02/16 SUBJECTIVE: This 76 year old WHITE/ M was hospitalized 11/28/16. The patient doesn't talk much but says he is okay. He has not been walking much. The nurses noted slurred speech and swollen tongue. No lesions on the tongue. REVIEW OF SYSTEMS: CONSTITUTIONAL: No fever, no chills. ENDOCRINE: No weight loss or weight gain. HEENT: No sinus drainage, no sore throat. CVS: No angina symptoms. No CHF symptoms. No palpitations. No atypical chest pain for CAD. No shortness of breath. RESPIRATORY: No cough, no hemoptysis. GI: No melena. No abdominal pain. No nausea, no vomiting. : No hematuria. No polyuria. SKIN: Multiple excoriations with decubitus ulcers on buttocks and left elbow. MUSCULOSKELETAL: No pain. HUNTING AND FISHING GUIDE: No blackout, no dizziness. No headache. No double vision. PSYCHIATRIC: Not anxious; no depression. No suicidal thoughts. No homicidal thoughts. PHYSICAL EXAMINATION: GENERAL: Lying in bed in no distress. VITAL SIGNS: Temperature 97.2 F, Pulse 102, Respiratory Rate 24, BP 102/59, Pulse Ox 98% HEENT: Normocephalic, atraumatic. Mucosa is dry, pallor positive. NECK: No JVP, no carotid bruit. No lymphadenopathy. CARDIAC: S1, S2, no S3. No murmur, gallop or regurgitation. LUNGS: Clear to auscultation. ABDOMEN: Soft, non-tender. Bowel sounds active. No rigidity, guarding or CVA tenderness. Macerated decubitus ulcers on buttocks with some blood-tinged fluid draining; left elbow draining yellowish fluid. EXTREMITIES: No clubbing, cyanosis or edema. NEUROLOGIC: Awake, alert and oriented x3. LYMPHATIC: No palpable lymph nodes SKIN: Not dry. Intact. MUSCULOSKELETAL: No joint swelling. LAB REVIEW: 12/02/16 05:22 12/02/16 05:22 12/02/16 05:22: WBC 5.79, RBC 2.82 L, Hgb 11.3 L, Hct 32.3 L, MCV 114.5 H, MCH 40.1 H, MCHC 35.0, RDW Coeff of Heather 13.8, Plt Count 83 L, Immature Gran % (Auto ) 0.9, Neut % (Auto) 71.5, Lymph % (Auto) 19.9, [place] % (Auto) 5.2, Eos % (Auto) 2.2, Baso % (Auto) 0.3, Immature Gran # (Auto) 0.1, Neut # 4.1, Lymph # 1.2, [place] # 0.3 L, Eos # 0.1, Baso # 0.0, Sodium 137, Potassium 4.1, Chloride 104, Carbon Dioxide 28, Anion Gap 9.1, BUN 5 L, Creatinine 0.52 L, Estimated GFR ( MDRD) 154.00, BUN/Creatinine Ratio 9.61, Glucose 88, Calcium 7.7 L, Total Bilirubin 0.98, AST 45 H, ALT 32, Alkaline Phosphatase 80, Total Protein 5.0 L, Albumin 1.8 L, Globulin 3.2, Albumin/Globulin Ratio 0.56 12/01/16 04:35: TSH 4.325, Free T4 0.79 ASSESSMENT: 1. Community acquired pneumonia 2. Status post severe hypoxemia 3. Status post hypokalemia 4. History of alcohol dependency 5. New onset atrial fibrillation 6. Hypertension 7. Dyslipidemia 8. Multiple open areas excoriated on buttocks draining 9. elbow left wound draining PLAN: 1. PT evaluate 2. Culture wounds on buttocks and elbow 3. Stop Vancomycin 4. Bactrim DS p.o. twice a day 5. Vitamin C 500 mg daily 6. Zinc 200 mg p.o. b.i.d. 7. Start Eliquis 2.5 mg twice a day 8. D/C Lovenox 9. Echocardiogram for new onset atrial fibrillation Plan and coordination of the patient's care discussed in the presence of Digital Forensic Analyst and nurse. CONDITION: Stable SCRIBED BY: TYRELL GARZON Foundry Worker Apprentice scribed while in presence of service performed by Dr. HUA STREETER on 12/02/16 ([id number])
[2016-12-03] MEDS: NORCO 7.5-325 PO PRN (00:29)
[2016-12-03] MEDS: DUONEB NEB SCH ×2 (04:45→11:15)
[2016-12-03 04:56] LABS: BASOPHILS % (AUTO) 0.3 % (0.0-3.0); EOSINOPHILS # (AUTO) 0.2 K/ul (0.0-0.7); HEMATOCRIT 29.6 % (42.0-52.0); HEMOGLOBIN 10.2 g/dl (14.0-18.0); IMMATURE GRANULOCYTE % (AUTO) 0.8 % (0.0-5.0); LYMPHOCYTES # (AUTO) 0.9 K/uL (0.60-3.4); LYMPHOCYTES % (AUTO) 14.9 (10.0-50.0); MEAN CORPUSCULAR HGB CONC 34.5 (31.8-35.4); MEAN CORPUSCULAR VOLUME 116.1 fl (80.0-94.0); MONOCYTES # (AUTO) 0.3 K/uL (0.4-2.0); MONOCYTES % (AUTO) 4.1 (0-10); NEUTROPHILS # (AUTO) 4.6 K/ul (2.0-6.9); NEUTROPHILS % (AUTO) 76.9; PLATELET COUNT 76 10^3/uL (140-440); RED BLOOD COUNT 2.55 10^6/ul (4.70-6.10); WHITE BLOOD COUNT 6.04 K/ul (4.2-10.2)
[2016-12-03 05:19] LABS: ALBUMIN 1.6 g/dL (3.4-5.0); ALBUMIN/GLOBULIN RATIO 0.53; ANION GAP 7.3; BILIRUBIN,TOTAL 0.8 mg/dL (0.00-1.20); BUN/CREATININE RATIO 9.8; CALCIUM 7.4 mg/dL (8.2-10.2); CREATININE 0.51 mg/dL (0.60-1.10); POTASSIUM 4.3 mmol/L (3.5-5.1); TOTAL PROTEIN 4.6 g/dL (5.8-8.1)
[2016-12-03] MEDS: PROTONIX PO SCH (06:16)
[2016-12-03 08:33] LABS: RETICULOCYTE % 2.14 %
[2016-12-03] MEDS: LIBRIUM PO SCH ×2 (09:29→14:48)
[2016-12-03] MEDS: BACTRIM DS 800/160 MG PO SCH (09:29)
[2016-12-03] MEDS: NYSTOP POWDER TP SCH ×2 (09:30→14:48)
[2016-12-03] MEDS: MICATIN TP SCH (09:30)
[2016-12-03] MEDS: ZINC-220 PO SCH (09:31)
[2016-12-03] MEDS: VITAMIN C PO SCH (09:31)
[2016-12-03 09:42] LABS: FERRITIN 202.71 ng/mL (21.81-274.66); IRON 42 ug/dL (65-175); TOTAL IRON BINDING CAPACITY 140 ug/dL (240-450)
--- NOTE | 2016-12-03 09:59 | PCM.PROG ---
Attending Provider: ATTENDING PROVIDER: Dr. HUA STREETER DATE OF SERVICE: 12/03/16 SUBJECTIVE: This 76 year old WHITE/ M was hospitalized 11/28/16. The patient states he is doing fair. He has rested well through the night. No complaints. He has an open elbow pressure ulcer 0.1 x 0.1 x 0.1 which is draining. Superficial wound 8 x 5 lateral part of thigh without drainage. The buttocks decubitus is much better with healthy looking tissue. REVIEW OF SYSTEMS: CONSTITUTIONAL: No fever, no chills. ENDOCRINE: No weight loss or weight gain. HEENT: No sinus drainage, no sore throat. CVS: No angina symptoms. No CHF symptoms. No palpitations. No atypical chest pain for CAD. No shortness of breath. RESPIRATORY: No cough, no hemoptysis. GI: No melena. No abdominal pain. No nausea, no vomiting. : No hematuria. No polyuria. SKIN: No rash. As described in subjective. MUSCULOSKELETAL: No pain. MANAGER HEAVY DUTY: No blackout, no dizziness. No headache. No double vision. PSYCHIATRIC: Not anxious; no depression. No suicidal thoughts. No homicidal thoughts. PHYSICAL EXAMINATION: GENERAL: Lying in bed in no distress. VITAL SIGNS: Temperature 97.6 F, Pulse 93, Respiratory Rate 16, BP 92/63, Pulse Ox 99% HEENT: Normocephalic, atraumatic. Mucosa is dry, pallor positive. NECK: No JVP, no carotid bruit. No lymphadenopathy. CARDIAC: S1, S2, no S3. No murmur, gallop or regurgitation. LUNGS: Decreased entry. Clear to auscultation. ABDOMEN: Soft, non-tender. Bowel sounds active. No rigidity, guarding or CVA tenderness. EXTREMITIES: Pitting edema is present. No clubbing, cyanosis. NEUROLOGIC: Awake, alert and oriented x3. LYMPHATIC: No palpable lymph nodes SKIN: Not dry. Intact. MUSCULOSKELETAL: No joint swelling. LAB REVIEW: 12/03/16 04:53 12/03/16 04:53 12/03/16 04:53: WBC 6.04, RBC 2.55 L, Hgb 10.2 L, Hct 29.6 L, MCV 116.1 H, MCH 40.0 H, MCHC 34.5, RDW Coeff of Heather 14.0, Plt Count 76 L, Immature Gran % (Auto ) 0.8, Neut % (Auto) 76.9, Lymph % (Auto) 14.9, [place] % (Auto) 4.1, Eos % (Auto) 3.0, Baso % (Auto) 0.3, Immature Gran # (Auto) 0.1, Neut # 4.6, Lymph # 0.9, [place] # 0.3 L, Eos # 0.2, Baso # 0.0, Sodium 134 L, Potassium 4.3, Chloride 109 H , Carbon Dioxide 22 L, Anion Gap 7.3, BUN 5 L, Creatinine 0.51 L, Estimated GFR (MDRD) 158.00, BUN/Creatinine Ratio 9.80, Glucose 85, Calcium 7.4 L, Total Bilirubin 0.80, AST 40 H, ALT 28, Alkaline Phosphatase 69, Total Protein 4.6 L, Albumin 1.6 L, Globulin 3.0, Albumin/Globulin Ratio 0.53 ASSESSMENT: 1. Community acquired pneumonia, better 2. Thrombocytopenia 3. 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 History of alcohol dependence 5. Status post severe hypoxemia 6. Status post hypokalemia 7. New onset atrial fibrillation 8. Hypertension 9. Dyslipidemia 10. Multiple open areas excoriated on buttocks draining 11. Elbow left wound draining PLAN: 1. Discharge to senior care today 2. Echocardiogram this morning 3. Continue Vitamin C and Zinc 4. Continue all other medications 5. Continue Bactrim for 7 more days 6. Continue baby aspirin 7. Anemia profile 8. Stool for occult blood 9. D/C Guillen 10. Librium b.i.d. p.r.n. agitation 11. Wound care referral Plan and coordination of the patient's care discussed in the presence of Racker Octave Board and nurse. CONDITION: Stable SCRIBED BY: TYRELL GARZON, Bit And Shank Department Supervisor scribed while in presence of service performed by Dr. HUA STREETER on 12/03/16 ([id number])
[2016-12-03] MEDS: CALMOSEPTINE OINTMENT TP PRN (10:08)
[2016-12-03 10:34] LABS: FOLATE > 40.0 ng/mL (3.1-20.5)
[2016-12-03 14:18] VITALS: BP 93/63; TEMP 98.5
--- NOTE | 2016-12-04 14:53 | ECHO2D ---
Date of Exam: 12/03/2016 Ordering Physician: DR. STREETER Reason for Echo: ATRIAL FIBRILLATION NEW ONSET M-Mode Normal Adult Results LV Dimensions Normal Adult Results AoV Opening excursions >1.6 >1.6 LVEDD-base- 3.5-5.8 5.1 Ao root dimensions 2.0-3.7 2.8 LVESD-base- 3.1-4.6 L. Atrium dimensions 1.9-3.8 4.5 Post. Wall thickness 0.8-1.1 1.0 IV septum (thickness) 0.7-1.2 1.1 Post. Wall excursion 0.72-1.3 NORMAL Septal motion NORMAL Systolic motion R. Ventricular cavity 1.5-2.0 NORMAL LVEF 60% 45 TO 50% Paradoxical septal wall motion NORMAL 2-D :NORMAL EXCEPT ENLARGED LEFT ATRIAL CAVITY. 2-D M Mode Echocardiogram was performed using apical four chamber and left parasternal long and short axis views. Mitral, tricuspid and aortic valves appear to be normal. Contractility of the left ventricle seems to be normal, so is the cavity size. Left atrial cavity size is enlarged. Aortic root appears to be normal. There is no pericardial effusion. There is no thrombus noted in the left ventricular or left aortic cavity. No mitral valve prolapse noted. M-MODE: MV: NORMAL AV: NORMAL TV: NORMAL PV: CHAMBER SIZE: ENLARGED LEFT ATRIAL CAVITY WALL MOTION: NORMAL PERICARDIUM: NORMAL INTERPRETATION: 1. MAYBE MILDLY HYPOKINETIC LEFT VENTRICLE WITH EJECTION FRACTION OF 45% TO 50% 2. LEFT ATRIAL CAVITY ENLARGED 3. NORMAL VALVES 4. MILD MITRAL REGURGITATION MTDD
--- NOTE | 2016-12-18 08:49 | DS ---
DATE OF SERVICE: 12/03/16 FINAL DIAGNOSIS: 1. Community acquired pneumonia, which is better 2. Status post severe hypokalemia 3. Thrombocytopenia 4. Anemia 5. Alcohol dependency 6. Superficial decubitus areas on the bilateral gluteal areas 7. Left elbow wound 8. Dyslipidemia 9. Hypertension DISCHARGE INSTRUCTIONS: Discharge the patient to the group home under the care of Dr. Bautista. Appointment with the [facility]. Followup with Dr. Bautista in the group home rounds. MEDICATIONS AT DISCHARGE: Multivitamin Aspirin NEW PRESCRIPTIONS: Protonix 40mg twice a day Librium 25mg PO twice a day for agitation Vitamin C Zinc Bactrim DS one tablet PO twice a day for 7 days. DIET INSTRUCTIONS: Regular and Cardiac diet ACTIVITY: As tolerated. Can participate in the group home activities. SMOKING: Current every day smoker DISEASE SPECIFIC EDUCATION: Anemia Alcohol dependency and abuse discussed with the patient in detail and verbalized understanding. HOSPITAL COURSE: Cameron Mane who is a 76 year old male was admitted to the hospital when the patient was found in the recliner at home for sitting in the recliner for 5 days where he was not able to move. At that time the patient was evaluated in the emergency room at the potassium was 2.7. It was replaced and gradually he started feeling better with that. Hgb dropped from the 12 to 10. Anemia profile was done which shows the iron deficiency anemia. His AST was mildly elevated. EKG did show multiple PAC's with irregular heart rate. Initially confused with atrial fibrillation but when Dr. Estrada saw the EKG did tell that it is not atrial fibrillation it was sinus rhythm with multiple PAC's. Hepatitis panel was negative during the hospital stay. As patient was needing the terminal computer operator evaluation, CT of the head is negative and X-ray of the elbow is negative for the osteomyelitis. CT head of the did show questionable normal pressure hydrocephalus but at this given time the patient does not have any problems of ataxia and as of now he can not walk but ataxia could not be access but the patient doesn't have any problems urinating as he was peeing fine. So it has to be evaluated again once the patient is more mobile to see if this patient is having ataxia problems then it can be considered for the normal pressure hydrocephalus. Otherwise getting a neuro evaluation as outpatient is also a good idea. The patient is needing evaluation for the physical therapist, they thought patient was needing more help in the physical therapy. At that time the patient is evaluated by the group home placement and the patient is subsequently transferred to the group home under the care of Dr. Bautista. TIME SPENT: More than 55 minutes today. ZAINAB
== END 2016-12-03 16:34 | DRG 194 ==
LOC: ED 12:49 → SCU 16:24
PROVIDERS: ADMIT Emergency Medicine; ATTEND Emergency Medicine
DX: J18.9 Pneumonia, unspecified organism (principal); R64 Cachexia; R04.2 Hemoptysis; E87.6 Hypokalemia; I51.7 Cardiomegaly; R09.02 Hypoxemia; D69.6 Thrombocytopenia, unspecified; F10.20 Alcohol dependence, uncomplicated; L89.329 Pressure ulcer of left buttock, unspecified stage; L89.319 Pressure ulcer of right buttock, unspecified stage; L89.029 Pressure ulcer of left elbow, unspecified stage; D50.9 Iron deficiency anemia, unspecified; R94.31 Abnormal electrocardiogram [ECG] [EKG]; E78.5 Hyperlipidemia, unspecified; M62.81 Muscle weakness (generalized); I10 Essential (primary) hypertension; M19.90 Unspecified osteoarthritis, unspecified site; F32.9 Major depressive disorder, single episode, unspecified; R47.81 Slurred speech; K14.8 Other diseases of tongue; Z79.82 Long term (current) use of aspirin
CPT/HCPCS: 36415; 80053; 80074; 80202; 81001; 82550; 82607; 82728; 82746; 82803; 83540; 83550; 83735; 83880; 84132; 84145; 84439; 84443; 84466; 84484; 85008; 85025; 85045; 85379; 87040; 87070; 87081; 87086; 93005; 93010; 94640; 96361; 96365; 97802; 99223; 99233; 99239; 99284

== ENCOUNTER 2017-10-05 19:47 | Emergency (ER) ==
[2017-10-05 19:51] VITALS: BP 148/81; TEMP 100; BMI 25.0
--- NOTE | 2017-10-05 20:11 | ED.PDOC ---
General ED Provider: Dr. HUA STREETER Chief Complaint: Eye Problem Stated Complaint: Patients right eye is red, started since 5 pm, does not hurt, eccymosis on the right side of the eye, Time Seen by Physician: 20:10 Mode of Arrival: Walk-In Information Source: Patient Primary Care Provider: STEPHANIE MORALES Nursing and Triage Documentation Reviewed and Agree: Yes Reviewed sepsis parameters & appropriate labs ordered?: Yes System Inflammatory Response Syndrome: Pulse >90 BPM Sepsis Protocol: For patient's 13 years and over: Temp is 96.8 and below OR 101 and greater Pulse >90 BPM Resp >20/minute Acutely Altered Mental Status Are patient's symptoms suggestive of a new infection, such as: -Pneumonia -Skin, Soft Tissue -Endocarditis -UTI -Bone, Joint Infection -Implantable Device -Acute Abdominal Infection -Wound Infection -Meningitis -Blood Stream Catheter Infection -Unknown EENT Complaint Exam - Eye Complaint/Exam Symptoms Are: Still present Timing: Constant Initial Severity: Moderate Current Severity: Moderate Location: Right Aggravating: Reports: None Alleviating: Reports: None Associated Signs and Symptoms: Reports: Fever. Denies: Photophobia, Clear drainage, Purulent drainage, Vision impairment, Swelling Eye Surgical History: Reports: None Penetrating Injury Risk Factors: None Globe Rupture Risk Factors: Recent trauma Acute Glaucoma Risk Factors: Eye trauma Visual Field: Normal Extraocular Movement: Normal Orbit Findings: Normal Lid Findings: Erythema, Ecchymosis Conjunctival Findings: Red Differential Diagnoses: Penetrating Injury, Orbital Cellulitis, Other (hematoma) Review of Systems - Review Of Systems Constitutional: Reports: No symptoms Eyes: Reports: Decreased acuity Ears, Nose, Mouth, Throat: Reports: No symptoms Respiratory: Reports: No symptoms Cardiac: Reports: No symptoms GI: Reports: No symptoms : Reports: No symptoms Musculoskeletal: Reports: No symptoms Skin: Reports: No symptoms Neurological: Reports: No symptoms Endocrine: Reports: No symptoms Hematologic/Lymphatic: Reports: No symptoms All Other Systems: Reviewed and Negative Past Medical History - Past Medical History Previously Healthy: Yes Endocrine: Reports: None Cardiovascular: Reports: None Respiratory: Reports: None Hematological: Reports: None Gastrointestinal: Reports: None Genitourinary: Reports: None Neuro/Psych: Reports: None Musculoskeletal: Reports: Back Pain ([id number]) Cancer: Reports: None - Surgical History General Surgical History: Reports: Appendectomy, Hernia Repair (ventral hernia repair) - Family History Family History: Reports: Unknown - Social History Smoking Status: Current every day smoker Hx Substance Use: No Alcohol Screening: Occasionally - Immunizations Tetanus Shot up to Date: No Physical Exam - Physical Exam Appearance: Ill-appearing Eyes: Conjunctiva inflammed ENT: Ears normal, Nose normal, Oropharynx normal Respiratory: Airway patent, Breath sounds clear, Breath sounds equal, Respirations nonlabored Cardiovascular: RRR, Pulses normal, No rub, No murmur GI/: Soft, Nontender, No masses, Bowel sounds normal, No Organomegaly Musculoskeletal: Normal strength, ROM intact, No edema, No calf tenderness Skin: Warm, Dry, Normal color Neurological: Sensation intact, Motor intact, Reflexes intact, Cranial nerves intact, Alert, Oriented Psychiatric: Affect appropriate, Mood appropriate Interpretation - Radiology Interpretation Radiology Interpretation By: Radiologist Radiology Results: Negative Exam Interpreted: CT Scan Critical Care Note - Critical Care Note Total Time (mins): 20 Course - Course Hematology/Chemistry: 10/05/17 20:20 10/05/17 20:20 Orders, Labs, Meds: Orders Category Date Time Status CBC W/ AUTO DIFF Stat LAB 10/05/17 20:08 Ordered CMP [COMPREHENSIVE METABOLIC PANEL] Stat LAB 10/05/17 20:[address] HEAD W/O CONTRAST Stat RADS 10/05/17 20:[address] MAXILLOFACIAL W/O CONTRAST Stat RADS 10/05/17 20:08 Ordered Vital Signs: Temp Pulse Resp BP Pulse Ox 10/05/17 19:49 100.0 F H 91 H 20 148/81 H 97 Departure - Departure Time of Disposition: 22:28 Disposition: HOME SELF-CARE Discharge Problem: Subconjunctival hemorrhage of right eye Instructions: Subconjunctival Hemorrhage (ED) Condition: Stable Pt referred to PMD for follow-up: Yes IPMP verified?: No Additional Instructions: artficial eye drops, F/u with Dr Guerrero, 10 am Allergies/Adverse Reactions: Allergies No Known Allergies Allergy (Unverified 10/05/17 19:52) Home Medications: Ambulatory Orders Multivitamin [Multi Vitamin Daily] 1 tab PO DAILY 04/03/13 Aspirin [Aspirin Chewable] 81 mg PO DAILY 10/05/17 Folic Acid 1 mg PO DAILY 10/05/17 Omeprazole 20 mg PO DAILY 10/05/17 Potassium Chloride [Micro-K Cap] 20 meq PO DAILY 10/05/17 Disposition Discussed With: Patient, Family
--- NOTE | 2017-10-05 21:52 | CT ---
EXAM: CT head without contrast HISTORY: Trauma COMPARISON: CT head from 12/02/[address] from today. TECHNIQUE: Helical axial CT of the head was performed without contrast. Coronal and sagittal reconstr uctions were performed. FINDINGS: There is no acute intracranial abnormality. There is no hemorrhage, mass, midline shift, abnormal ex tra-axial fluid collection, hydrocephalus or evolving ischemia. The kaur-white matter junction is wel l maintained. There is some mild prominence of the ventricular system which is stable on the basis of atrophy. Brain parenchyma, ventricles and sulci are otherwise normal. There are no acute calvarial lesions. Visualized orbits and globes are unremarkable. The mastoid ai r cells demonstrate no significant soft tissue opacification. The visualized paranasal sinuses show n o air-fluid levels. There is calcific atherosclerosis. IMPRESSION: No acute intracranial abnormality.
--- NOTE | 2017-10-05 21:56 | CT ---
EXAM: CT sinuses/facial bones without contrast HISTORY: Trauma COMPARISON: CT head from today TECHNIQUE: Helical axial CT of the facial bones and sinuses were obtained without contrast with hayden nal and sagittal reconstructions. FINDINGS: There is no acute osseous abnormality. Specifically the orbits are intact with no evidenc e for inferior or medial blowout fracture. The zygomatic arches, pterygoid plates and mendez of the m axillary sinuses are intact. There is no nasal or mandibular fracture or dislocation. There are no fluid levels in the paranasal sinuses. The visualized portions of the temporal bones, and intracra nial contents are unremarkable. There are no acute soft tissue abnormalities. There is some soft tiss ue swelling over the right orbit. There is extremely advanced degenerative anterior osteophytosis in volving the upper cervical spine. There is calcific atherosclerosis IMPRESSION: 1. No acute osseous maxillofacial abnormality. 2. Soft tissue swelling over the right orbit. 3. 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
== END 2017-10-05 22:35 | disposition home or self-care (01) ==
LOC: ED 19:47
DX: H11.31 Conjunctival hemorrhage, right eye (principal); R50.9 Fever, unspecified; F17.210 Nicotine dependence, cigarettes, uncomplicated
CPT/HCPCS: 36415; 80053; 83605; 84145; 85007; 85025; 99283

== ENCOUNTER 2018-01-10 18:26 | Emergency (ER) ==
[2018-01-10 18:36] VITALS: BMI 26.6
[2018-01-10] MEDS ORDERED: SODIUM CHLORIDE 1,000 ML IV STA (18:51)
--- NOTE | 2018-01-10 19:01 | CT ---
Exam: Head CT. Date: 01/10/2018. Comparison: 10/05/2017. HISTORY: Syncope. TECHNIQUE: Helical scan of the brain was performed. FINDINGS: The calvarium is intact. The paranasal sinuses and mastoid air cells are clear. The brainstem and cerebellum are within normal limits. No abnormal intra or extra-axial fluid, mass o r mass effect is present. There is no midline shift. There is stable prominence of the ventricular system no large vessel infarct or hemorrhages identified. Yates-white interface is maintained. Impression: No acute intracranial findings. However there is persistent prominence of the ventricul ar system. This can be normal, but can also be seen in patients with normal pressure hydrocephalus. Recommend correlation for this possibility if it has not been previously performed.
--- NOTE | 2018-01-10 19:14 | ED.PDOC ---
General ED Provider: Dr. ROB RYAN-ER Chief Complaint: Syncope Stated Complaint: he passed out --denies cp or dyspnea=--hx of dementia and cirrhosis according to dr ruiz note Time Seen by Physician: 18:35 Mode of Arrival: Walk-In Information Source: EMT Exam Limitations: No limitations Primary Care Provider: STEPHANIE RUIZ Nursing and Triage Documentation Reviewed and Agree: Yes Reviewed sepsis parameters & appropriate labs ordered?: Yes System Inflammatory Response Syndrome: Not Applicable Sepsis Protocol: For patient's 13 years and over: Temp is 96.8 and below OR 101 and greater Pulse >90 BPM Resp >20/minute Acutely Altered Mental Status Are patient's symptoms suggestive of a new infection, such as: -Pneumonia -Skin, Soft Tissue -Endocarditis -UTI -Bone, Joint Infection -Implantable Device -Acute Abdominal Infection -Wound Infection -Meningitis -Blood Stream Catheter Infection -Unknown Neurological Complaint Exam - Syncope/Near Syncope Complaint/Exam Onset/Duration: today Symptoms Are: Resolved Episodes Lasting: Seconds Number of Episodes: 1 Episodes Witnessed: Yes Loss of Consciousness: Yes Associated Head Trauma: No Activity at Onset: With exertion Aggravating: Position change Alleviating: Reports: Spontaneous resolution Associated Signs and Symptoms: Reports: GI blood loss GI Bleed Risk Factors: Reports: NSAID use JVD Present: No Carotid Bruit Present: No Rectal Heme Positive: Yes Glascow Coma Scale (see protocol): 15 Nystagmus Present: No Gag Reflex Present: Yes Meningeal Signs Positive: No Focal Weakness: Present: None Focal Sensory Loss: Present: None Gait: Normal Differential Diagnoses: Dysrhythmia, GI Bleed Quality Indicator For Non-Traumatic Chest Pain/Syncope: EKG Performed Review of Systems - Review Of Systems Constitutional: Reports: No symptoms Eyes: Reports: No symptoms Ears, Nose, Mouth, Throat: Reports: No symptoms Respiratory: Reports: No symptoms Cardiac: Reports: Syncope GI: Reports: No symptoms : Reports: No symptoms Musculoskeletal: Reports: No symptoms Skin: Reports: No symptoms Neurological: Reports: No symptoms Endocrine: Reports: No symptoms Hematologic/Lymphatic: Reports: No symptoms All Other Systems: Reviewed and Negative Past Medical History - Past Medical History Previously Healthy: Yes Endocrine: Reports: None Cardiovascular: Reports: None Respiratory: Reports: None Hematological: Reports: None Gastrointestinal: Reports: Liver, Other Genitourinary: Reports: None Neuro/Psych: Reports: Dementia Musculoskeletal: Reports: Back Pain ([id number]) Cancer: Reports: None - Surgical History General Surgical History: Reports: Appendectomy, Hernia Repair (ventral hernia repair) - Family History Family History: Reports: Unknown - Social History Smoking Status: Current every day smoker Hx Substance Use: No Alcohol Screening: Occasionally - Immunizations Tetanus Shot up to Date: No Physical Exam - Physical Exam Appearance: Well-appearing Eyes: KIM, EOMI, Conjunctiva clear ENT: Ears normal, Nose normal, Oropharynx normal Neck: Supple Respiratory: Airway patent Cardiovascular: RRR GI/: Soft, Nontender, No masses Musculoskeletal: Normal strength, ROM intact, No edema, No calf tenderness Skin: Warm, Dry, Normal color Neurological: Alert Psychiatric: Affect appropriate, Mood appropriate Interpretation - Radiology Interpretation Radiology Interpretation By: ED Physician Radiology Results: Negative Exam Interpreted: CT Scan - EKG Interpretation Time of EKG #1: 20:03 Rate: Normal Rhythm: Sinus Ectopy: None [place]: NL ST Segment: Normal Interpretation: nsr Physician Notification - Case Discussed Physician Notified: dr ruiz Time of Notification: 19:44 Critical Care Note - Critical Care Note Total Time (mins): 30 Course - Course Hematology/Chemistry: 01/10/18 08:38 01/10/18 08:38 Orders, Labs, Meds: Lab Review 01/10/18 01/10/18 01/10/18 08:38 08:38 18:53 WBC 1.93 L* RBC 0.86 L Hgb 3.3 L* Hct 9.9 L* MCV 115.1 H MCH 38.4 H MCHC 33.3 RDW Coeff of Heather 19.0 H Plt Count 7 L* Neutrophils % (Manual) 10.0 L Lymphocytes % (Manual) 48.0 Monocytes % (Manual) 10.0 Metamyelocytes % 18.0 H Myelocytes % 14.0 H Anisocytosis Not present Sodium 139 Potassium 3.8 Chloride 106 Carbon Dioxide 21 L Anion Gap 15.8 BUN 31 H Creatinine 0.82 Estimated GFR (MDRD) 91.00 BUN/Creatinine Ratio 37.80 Glucose 133 H Calcium 8.2 Total Bilirubin 0.9 AST 11 L ALT 7 L Alkaline Phosphatase 100 Total Creatine Kinase 35 Troponin I 0.1570 Total Protein 6.0 Albumin 3.0 L Globulin 3.0 Albumin/Globulin Ratio 1.00 Stl Occult Blood (IFOB) Positive Stool Occult Blood #2 No specimen received Stool Occult Blood #3 No specimen received Blood Type Antibody Screen Crossmatch (AHG) 01/10/18 19:00 WBC RBC Hgb Hct MCV MCH MCHC RDW Coeff of Heather Plt Count Neutrophils % (Manual) Lymphocytes % (Manual) Monocytes % (Manual) Metamyelocytes % Myelocytes % Anisocytosis Sodium Potassium Chloride Carbon Dioxide Anion Gap BUN Creatinine Estimated GFR (MDRD) BUN/Creatinine Ratio Glucose Calcium Total Bilirubin AST ALT Alkaline Phosphatase Total Creatine Kinase Troponin I Total Protein Albumin Globulin Albumin/Globulin Ratio Stl Occult Blood (IFOB) Stool Occult Blood #2 Stool Occult Blood #3 Blood Type A POSITIVE Antibody Screen Negative Crossmatch (AHG) See Detail Orders Category Date Time Status EKG-(ED ONLY) Stat CARDIO 01/10/18 18:28 Completed PRBC LEUKOREDUCED ONCE CARE 01/10/18 19:42 Active TRANSFER TO OUTSIDE FACILITY .TO [facility] 01/10/18 19:45 Active ([place], [place]) WRITE TRANSFER/SBAR NOTE ONCE CARE 01/10/18 19:45 Active DISCHARGE ASSESSMENT ONCE DISCHARGE 01/10/18 19:45 Active WRITE DISCHARGE NOTE ONCE DISCHARGE 01/10/18 19:45 Active 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] .ONCE EMERGENCY 01/10/18 18:29 Active IV [ED IV/MEDIPORT/POWERPORT] .ONCE EMERGENCY 01/10/18 18:51 Active CBC W/ AUTO DIFF Stat LAB 01/10/18 08:38 Completed COMPREHENSIVE METABOLIC PANEL Stat LAB 01/10/18 08:38 Completed CREATINE KINASE Stat LAB 01/10/18 08:38 Completed MANUAL DIFFERENTIAL Stat LAB 01/10/18 08:38 Completed OCCULT BLOOD, STOOL Stat LAB 01/10/18 18:53 Completed PACKED CELLS Stat LAB 01/10/18 19:00 Results TROPONIN I Stat LAB 01/10/18 08:38 Completed TYPE AND SCREEN Stat LAB 01/10/18 19:00 Results 0.9 % Sodium Chloride [Saline Flush] MEDS 01/10/18 18:51 Ordered 1 syr IVF PRN PRN Sodium Chloride 0.9% [Sodium Chloride] 1,000 ml MEDS 01/10/18 18:[address] HEAD W/O CONTRAST Stat RADS 01/10/18 18:29 Completed Medications Generic Name Dose Route Start Last Admin Trade Name Freq PRN Reason Stop Dose Admin Sodium Chloride 1 syr 01/10/18 18:51 Saline Flush IVF PRN PRN To flush IV Discontinued Medications Generic Name Dose Route Start Last Admin Trade Name Chris PRN Reason Stop Dose Admin Sodium Chloride 1,000 mls @ 1,000 mls/hr 01/10/18 18:51 01/10/18 20:02 Sodium Chloride IV 01/10/18 19:50 1,000 mls/hr BOLUS STA Administration Vital Signs: Temp Pulse Resp BP Pulse Ox 01/10/18 18:29 97.0 F L 93 H 18 103/54 L 98 Departure - Departure Time of Disposition: 19:44 Disposition: TSF SHORT-TRM HOSP Discharge Problem: GI bleed Qualifiers: GI bleed type/associated pathology: unspecified gastrointestinal hemorrhage type Qualified Code(s): K92.2 - Gastrointestinal hemorrhage, unspecified Condition: Stable Pt referred to PMD for follow-up: Yes IPMP verified?: No Allergies/Adverse Reactions: Allergies No Known Allergies Allergy (Unverified 01/10/18 18:36) Home Medications: Ambulatory Orders Multivitamin [Multi Vitamin Daily] 1 tab PO DAILY 04/03/13 Aspirin [Aspirin Chewable] 81 mg PO DAILY 10/05/17 Folic Acid 1 mg PO DAILY 10/05/17 Omeprazole 20 mg PO DAILY 10/05/17 Potassium Chloride [Micro-K Cap] 20 meq PO DAILY 10/05/17 Transfer Form Completed: Yes Disposition Discussed With: Patient
[2018-01-12 15:04] VITALS: BP 119/55; TEMP 97
== END 2018-01-10 20:40 | disposition short-term general hospital (02) ==
LOC: ED 18:26
DX: K92.2 Gastrointestinal hemorrhage, unspecified (principal); R55 Syncope and collapse; R53.1 Weakness; F03.90 Unspecified dementia, unspecified severity, without behavioral disturbance, psychotic disturbance, mood disturbance, and anxiety; I10 Essential (primary) hypertension; Z79.899 Other long term (current) drug therapy; F17.210 Nicotine dependence, cigarettes, uncomplicated
CPT/HCPCS: 36415; 36430; 80053; 82272; 82550; 84484; 85007; 85025; 86850; 86900; 86922; 93005; 93010; 96360; 96361; 96365; 99285